=== PATIENT | male | born 1950 | race Caucasian/White ===

== ENCOUNTER → 2016-08-26 | Outpatient (CLI) | payer BC ==
[2016-08-26 07:45] LABS: CH 31.5; CHCM 35.1; HCT 48.3 % (39.0-53.0); HDW 3.03; HGB 16.4 gm/dL (13.0-17.5); MCH 30.7 pg (25.0-35.0); MCV 90.2 fL (80.0-100.0); Mean Platelet Volume 7.6; RBC 5.35 m/uL (4.30-5.90); RDW 13.2 % (11.5-15.5); WBC 5.7 k/uL (3.8-10.6)
[2016-08-26 10:41] LABS: ALT 51 U/L (21-72); AST 27 U/L (17-59); Alkaline Phosphatase 72 U/L (38-126); Anion Gap 10 mmol/L; Blood Urea Nitrogen 14 mg/dL (9-20); Calcium 9.2 mg/dL (8.4-10.2); Carbon Dioxide 28 mmol/L (22-30); Chloride 105 mmol/L (98-107); Cholesterol 239 mg/dL (<200); Creatine Kinase 100 U/L (55-170); Glucose 96 mg/dL (74-99); HDL Cholesterol 31 mg/dL (40-60); Non-African American GFR(MDRD) >60 (>60 ml/min/1.73 sqM); Potassium 4.5 mmol/L (3.5-5.1); Sodium 143 mmol/L (137-145); Total Bilirubin 1.1 mg/dL (0.2-1.3); Total Protein 6.9 g/dL (6.3-8.2); Triglycerides 187 mg/dL (<150)
[2016-08-26 11:14] LABS: Prostate Specific Antigen 3.23 ng/mL (0.00-4.00)
== END | disposition home or self-care (01) ==
LOC: LABWHC1 06:58
PROVIDERS: ATTEND Family Medicine
DX: Z00.00 Encounter for general adult medical examination without abnormal findings (principal); E78.5 Hyperlipidemia, unspecified; R35.0 Frequency of micturition; Z51.81 Encounter for therapeutic drug level monitoring; Z79.899 Other long term (current) drug therapy
CPT/HCPCS: 36415; 80053; 80061; 82550; 84153; 84443; 85027

== ENCOUNTER 2017-11-19 07:56 | Observation (INO) | payer BC, MEDICARE ==
[2017-11-19] MEDS ORDERED: ASPIRIN 81 MG PO STA (08:19)
[2017-11-19] MEDS ORDERED: SODIUM CHLORIDE 0.9% 1,000 ML IV STA (08:19)
[2017-11-19] MEDS ORDERED: MORPHINE SULFATE/PF 10MG/10ML VL IVP STA (08:19)
[2017-11-19] MEDS ORDERED: NITROGLYCERIN OINT 1 INCH/GM PACKET TOPICAL STA (08:19)
[2017-11-19] MEDS ORDERED: ONDANSETRON 4 MG/2 ML VIAL IVP STA (08:19)
--- NOTE | 2017-11-19 08:29 | ED ---
Chest Pain HPI - General Chief Complaint: Chest Pain Stated Complaint: CHEST BURNING, COLD AND CLAMMY Time Seen by Provider: 11/19/17 08:11 Source: patient Mode of arrival: wheelchair Limitations: no limitations - History of Present Illness Initial Comments: 67 years old male had a chest pain since 1:30 morning he does have a history of heartburn he thought was heartburn he took is PPIs and then heartburn continued the now he feels better he said it hurts when he takes a deep breath. No history of heart disease his noticed that me he was quite diaphoretic, no headache no neck stiffness has heartburn and heartburn gets worse with deep breaths no abdominal pain no frequency urgency dysuria no symptoms of TIA or CVA - Related Data Home Medications Medication Instructions Recorded Confirmed Atorvastatin [Lipitor] 20 mg PO DAILY 10/13/15 10/13/15 Ciprofloxacin HCl [Cipro] 500 mg PO Q12HR 10/13/15 10/13/15 Rodney-3 Acid Ethyl Esters [Lovaza] 2 gm PO BID 10/13/15 10/13/15 Previous Rx's Medication Instructions Recorded Famotidine [Pepcid] 20 mg PO BID #20 tablet 10/13/15 Levofloxacin [Levaquin] 750 mg PO DAILY 7 Days tab 10/13/15 diphenhydrAMINE [Benadryl] 1 - 2 tab PO Q6HR PRN #30 capsule 10/13/15 predniSONE 20 mg PO DIRECTED 9 Days tab 10/13/15 Allergies Allergy/AdvReac Type Severity Reaction Status Date / Time ceftriaxone sodium Allergy Unknown Verified 11/19/17 07:57 [From Rocephin] doxycycline Allergy Unknown Verified 11/19/17 07:57 Penicillins Allergy Unknown Verified 11/19/17 07:57 Sulfa (Sulfonamide Allergy Unknown Verified 11/19/17 07:57 Antibiotics) sulfamethoxazole Allergy Unknown Verified 11/19/17 07:57 [From Bactrim] trimethoprim [From Bactrim] Allergy Unknown Verified 11/19/17 07:57 Review of Systems ROS Statement: Those systems with pertinent positive or pertinent negative responses have been documented in the HPI. ROS Other: All systems not noted in ROS Statement are negative. EKG Findings - EKG Comments: EKG Findings:: EKG is normal sinus rhythm ventricular rate is 86 IN interval is 156 QRS duration is 84 QT/QTC 360/4:30 and review of this EKG reveals T-wave inversion in lead 3 noticed [address] slight ST and T-wave flattening in aVF no ST elevation noticed in rest of the leads Past Medical History Past Medical History: Hyperlipidemia History of Any Multi-Drug Resistant Organisms: None Reported Additional Past Surgical History / Comment(s): hemorrhoidectomy Past Psychological History: No Psychological Hx Reported Smoking Status: Never smoker Past Alcohol Use History: None Reported Past Drug Use History: None Reported General Exam - General Exam Comments Initial Comments: General: The patient is awake and alert, in no distress, and does not appear acutely ill. Skin: Skin is warm and dry and no rashes or lesions are noted. Eye: Pupils are equal, round and reactive to light, extra-ocular movements are intact; there is normal conjunctiva bilaterally. Ears, nose, mouth and throat: There are moist mucous membranes and no oral lesions. Neck: The neck is supple, there is no tenderness or JVD. Cardiovascular: There is a regular rate and rhythm. No murmur, rub or gallop is appreciated. Respiratory: To auscultation bilateral, no wheezing no rhonchi no distress respiratory edmond noticed Gastrointestinal: Soft, non-distended, non-tender abdomen without masses or organomegaly noted. There is no rebound or guarding present. Bowel sounds are unremarkable. Back: There is no tenderness to palpation in the midline. There is no obvious deformity. Musculoskeletal: Normal ROM, no tenderness, There is no pedal edema. There is no calf tenderness or swelling. No cords were appreciated. Neurological: CN II-XII intact, Cranial nerves III through XII are intact. There are no obvious motor or sensory deficits. Coordination appears grossly intact. Speech is normal. Psychiatric: Cooperative, appropriate mood & affect, normal judgment. Limitations: no limitations Course Vital Signs 11/19/17 07:57 Temperature 98.1 F Pulse Rate 85 Respiratory 17 Rate Blood Pressure 141/87 O2 Sat by Pulse 96 Oximetry Patient is reassessed at term his troponin is unremarkable white count is 15 he had exposure to secondhand smoke for 25+ years and troponin compressive metabolic panel are unremarkable considering he is about 52 he would need to come in under Dr. Martinez's service admit observation with the cardiology consult for 3 sets of cardiac markers and now he'll go on Levaquin for his bronchitis considering his white count is elevated with a left shift Disposition Clinical Impression: Heart burn, Bronchitis Disposition: ADMITTED IP TO THIS HOSP Condition: Good Referrals: Ellie Aldridge MD [Primary Care Provider] - 1-2 days
[2017-11-19 08:36] LABS: Basophils % (A) 0 %; Eosinophils # (A) 0.3 k/uL (0-0.7); Eosinophils % (A) 2 %; HCT 47.8 % (39.0-53.0); HGB 17.6 gm/dL (13.0-17.5); Lymphocytes # (A) 1.1 k/uL (1.0-4.8); Lymphocytes % (A) 8 %; MCH 31.8 pg (25.0-35.0); MCHC 36.8 g/dL (31.0-37.0); MCV 86.5 fL (80.0-100.0); Mean Platelet Volume 7.1; Monocytes # (A) 0.7 k/uL (0-1.0); Monocytes % (A) 5 %; Neutrophils # (A) 12.4 k/uL (1.3-7.7); Neutrophils % (A) 85 %; Platelet Count 254 k/uL (150-450); RBC 5.53 m/uL (4.30-5.90); RDW 13.4 % (11.5-15.5); WBC 14.6 k/uL (3.8-10.6)
[2017-11-19 08:43] LABS: ALT 36 U/L (21-72); AST 27 U/L (17-59); Albumin 4.4 g/dL (3.5-5.0); Alkaline Phosphatase 88 U/L (38-126); Anion Gap 11 mmol/L; Blood Urea Nitrogen 15 mg/dL (9-20); Calcium 9.6 mg/dL (8.4-10.2); Carbon Dioxide 24 mmol/L (22-30); Chloride 107 mmol/L (98-107); Glucose 132 mg/dL (74-99); Magnesium 2.1 mg/dL (1.6-2.3); Potassium 4.1 mmol/L (3.5-5.1); Sodium 142 mmol/L (137-145); Total Bilirubin 0.9 mg/dL (0.2-1.3); Total Protein 7.2 g/dL (6.3-8.2)
--- NOTE | 2017-11-19 08:50 | XR ---
EXAMINATION TYPE: XR chest 2V DATE OF EXAM: 11/19/2017 HISTORY: Chest Pain. REFERENCE: Previous study dated 10/13/2015. FINDINGS: Heart size upper limits of normal. There is mild ectasia of the ascending thoracic aorta. T here is unfolding of the descending thoracic aorta. There is some scarring in the right upper lobe. T he lungs are otherwise clear. Pleural spaces are clear. IMPRESSION: NO ACUTE INTRATHORACIC ABNORMALITY.
[2017-11-19 08:58] LABS: Creatine Kinase 85 U/L (55-170)
[2017-11-19 09:11] LABS: Creatine Kinase MB 1.4 ng/mL (0.0-2.4); Troponin I <0.012 ng/mL (0.000-0.034)
[2017-11-19] MEDS ORDERED: NITROGLYCERIN SL TABS 0.4 MG TAB SUBLINGUAL PRN (09:42)
[2017-11-19] MEDS ORDERED: MORPHINE SULFATE/PF 10MG/10ML VL IVP PRN (09:42)
[2017-11-19 10:26] LABS: D-Dimer 0.85 mg/L FEU (<0.60); Prothrombin Time 9.7 sec (9.0-12.0)
[2017-11-19 10:27] LABS: Partial Thromboplastin Time 21.3 sec (22.0-30.0)
[2017-11-19] MEDS ORDERED: RX INFO: IV CONTRAST WAS GIVEN 1 EACH MISC MISCELLANE PRN (10:30)
[2017-11-19] MEDS ORDERED: ACETAMINOPHEN TAB 325 MG TAB PO PRN (11:17)
[2017-11-19 11:37] VITALS: RESP 16
--- NOTE | 2017-11-19 11:41 | CT ---
EXAMINATION TYPE: CT angio chest DATE OF EXAM: 11/19/2017 11:16 AM COMPARISON: NONE HISTORY: Patient complains of back pain and chest burning. CT DLP: 358.3 mGycm Automated exposure control for dose reduction was used. CONTRAST: CTA scan of the thorax is performed with IV Contrast, patient injected with 100 mL of Isovue 370, pul monary embolism protocol. . FINDINGS: The lungs are clear. There is no significant axillary, mediastinal or hilar adenopathy. There is no evidence of pulmonary embolus. Aortic root is mildly aneurysmal measuring 3.8 cm. The proximal arch is also mildly aneurysmally dila long measuring 3.9 cm. The remainder the aorta is normal in caliber. There is no pleural or pericardial fluid. The heart is enlarged. Visualized portions of the upper abdomen are unremarkable. There is hypertrophic spondylosis within the spine. IMPRESSION: 1. THIS EXAMINATION IS NEGATIVE FOR PULMONARY EMBOLUS. 2. ASCENDING THORACIC AORTIC ANEURYSM. 3. CARDIOMEGALY. 4. DEGENERATIVE CHANGES WITHIN THE SPINE.
[2017-11-19] MEDS: LEVOFLOXACIN 750 MG TAB PO SCH (12:14)
--- NOTE | 2017-11-19 12:44 | P.CRDCN ---
History of Present Illness Consult date: 11/19/17 Chief complaint: Chest pain History of present illness: This is a pleasant 67-year-old gentleman with a past medical history significant for dyslipidemia presented to the hospital complaining of chest discomfort. He describes chronic and intermittent episodes of chest discomfort as a burning sensation in the middle of the chest without any radiation to the arm or neck or shoulders and without any associated symptoms. What alarmed him this time and brought him to the hospital that he woke up this morning feeling clammy and sweaty. He was experiencing also chest discomfort. No history of coronary artery disease but he does have dyslipidemia as a risk factor for CAD. No history of smoking or alcohol. And no family history of coronary artery disease. The EKG showed sinus rhythm with nonspecific changes. The first set of troponin came in to be unremarkable. The d-dimer came in to be elevated but the computed tomography scan of the chest did not show any evidence of PE. Past Medical History Past Medical History: Hyperlipidemia History of Any Multi-Drug Resistant Organisms: None Reported Additional Past Surgical History / Comment(s): hemorrhoidectomy Past Psychological History: No Psychological Hx Reported Smoking Status: Never smoker Past Alcohol Use History: None Reported Past Drug Use History: None Reported Medications and Allergies Home Medications Medication Instructions Recorded Confirmed Type Atorvastatin [Lipitor] 20 mg PO DAILY 11/19/17 11/19/17 History Garlic 1 tab PO DAILY 11/19/17 11/19/17 History [employer]-3 Fatty Acids/Fish Oil [Fish 1 cap PO BID 11/19/17 11/19/17 History Oil 1,000 mg Softgel] Pantoprazole Sodium [Protonix] 20 mg PO DAILY PRN 11/19/17 11/19/17 History Allergies Allergy/AdvReac Type Severity Reaction Status Date / Time ceftriaxone sodium Allergy Unknown Verified 11/19/17 10:35 [From Rocephin] doxycycline Allergy Unknown Verified 11/19/17 10:35 Penicillins Allergy Unknown Verified 11/19/17 10:35 Sulfa (Sulfonamide Allergy Unknown Verified 11/19/17 10:35 Antibiotics) sulfamethoxazole Allergy Unknown Verified 11/19/17 10:35 [From Bactrim] trimethoprim [From Bactrim] Allergy Unknown Verified 11/19/17 10:35 Physical Exam Vitals: Vital Signs Temp Pulse Pulse Resp BP BP Pulse Ox 11/19/17 11:30 98 F 69 16 132/80 97 11/19/17 11:20 98.1 F 85 18 137/71 95 11/19/17 11:18 85 18 137/71 95 11/19/17 09:46 77 18 145/78 97 11/19/17 07:57 98.1 F 85 17 141/87 96 Intake and Output 11/18/17 11/19/17 11/19/17 22:59 06:59 14:59 Intake Total 300 Balance 300 Intake: Amount of Fluid Infused ( 300 ml) Other: Weight 84.822 kg - Constitutional General appearance: no acute distress - Respiratory Respiratory: bilateral: CTA - Cardiovascular Rhythm: regular Heart sounds: normal: S1, S2 Results 11/19/17 08:20 11/19/17 08:20 Cardiac Enzymes 11/19/17 11/19/17 Range/Units 08:20 08:20 AST 27 (17-59) U/L CK-MB (CK-2) 1.4 (0.0-2.4) ng/mL Troponin I <0.012 (0.000-0.034) ng/mL Coagulation 11/19/17 Range/Units 09:49 PT 9.7 (9.0-12.0) sec APTT 21.3 L (22.0-30.0) sec CBC 11/19/17 Range/Units 08:20 WBC 14.6 H (3.8-10.6) k/uL RBC 5.53 (4.30-5.90) m/uL Hgb 17.6 H (13.0-17.5) gm/dL Hct 47.8 (39.0-53.0) % Plt Count 254 (150-450) k/uL Comprehensive Metabolic Panel 11/19/17 Range/Units 08:20 Sodium 142 (137-145) mmol/L Potassium 4.1 (3.5-5.1) mmol/L Chloride 107 (98-107) mmol/L Carbon Dioxide 24 (22-30) mmol/L BUN 15 (9-20) mg/dL Creatinine 0.69 (0.66-1.25) mg/dL Glucose 132 H (74-99) mg/dL Calcium 9.6 (8.4-10.2) mg/dL AST 27 (17-59) U/L ALT 36 (21-72) U/L Alkaline Phosphatase 88 (38-126) U/L Total Protein 7.2 (6.3-8.2) g/dL Albumin 4.4 (3.5-5.0) g/dL Current Medications Generic Name Dose Route Start Last Admin Trade Name Freq PRN Reason Stop Dose Admin Acetaminophen 650 mg 11/19/17 11:17 11/19/17 12:13 Tylenol Tab PO 650 mg Q4HR PRN Administration Fever and/ or Mild Pain Aspirin 325 mg 11/20/17 09:00 Aspirin PO DAILY CAMELIA Atorvastatin Calcium 40 mg 11/19/17 21:00 Lipitor PO HS CAMELIA Sodium Chloride 1,000 mls @ 100 mls/hr 11/19/17 08:19 11/19/17 09:44 Saline 0.9% IV 11/19/17 18:18 100 mls/hr .Q10H STA Administration Levofloxacin 750 mg 11/19/17 10:30 11/19/17 12:14 Levaquin PO 750 mg DAILY CAMELIA Administration Miscellaneous Information 1 each 11/19/17 10:30 Rx Info: Iv Contrast Was Given MISCELLANE 11/21/17 10:30 DAILY PRN Per Protocol Morphine Sulfate 2 mg 11/19/17 09:42 Morphine Sulfate IVP Q5M PRN Chest Pain Nitroglycerin 0.4 mg 11/19/17 09:42 Nitrostat SUBLINGUAL Q5M PRN Chest Pain Intake and Output 11/18/17 11/19/17 11/19/17 22:59 06:59 14:59 Intake Total 300 Balance 300 Intake: Amount of Fluid Infused ( 300 ml) Other: Weight 84.822 kg Patient Weight 11/20/17 06:59 Weight 84.822 kg 11/19/17 08:20 11/19/17 08:20 Assessment and Plan Assessment: Assessment #1 intermittent episodes of chest discomfort #2 abnormal EKG was nonspecific changes #3 dyslipidemia Plan #1 acute coronary event to be ruled out #2 we'll follow-up with the serial cardiac enzymes #3 monitor the patient for any more episodes of chest discomfort #4 obtain an echocardiogram was Doppler #5 follow-up with the patient. Thank you for allowing us participate in his care and we'll continue following up with him
--- NOTE | 2017-11-19 14:58 | ECHOF ---
Referral Reason:chest pain MEASUREMENTS -------- HEIGHT: 170.2 cm WEIGHT: 84.8 kg BP: 132/80 RVIDd: 3.0 cm (< 3.3) IVSd: 1.1 cm (0.6 - 1.1) LVIDd: 4.0 cm (3.9 - 5.3) LVPWd: 1.2 cm (0.6 - 1.1) IVSs: 1.4 cm LVIDs: 3.4 cm LVPWs: 1.5 cm LAESV Index (A-L): 31.97 ml/m Ao Diam: 3.8 cm (2.0 - 3.7) AV Cusp: 1.8 cm (1.5 - 2.6) LA Diam: 3.1 cm (2.7 - 3.8) EPSS: 0.9 cm MV E Will: 0.50 m/s MV DecT: 389 ms MV A Will: 0.80 m/s MV E/A Ratio: 0.63 RAP: 5.00 mmHg RVSP: 22.44 mmHg MV EF SLOPE: 56.51 mm/s (70 - 150) MV EXCURSION: 1.47 cm (> 18.000) FINDINGS -------- Sinus rhythm. This was a technically adequate study. The left ventricular size is normal. There is mild concentric left ventricular hypertrophy. Overa ll left ventricular systolic function is normal with, an EF between 55 - 60 %. The right ventricle is mildly enlarged. LA is midly dilated 29-33ml/m2. The right atrium is normal in size. The aortic valve is trileaflet, and appears structurally normal. No aortic stenosis or regurgitation. The mitral valve leaflets are mildly thickened. There is trace to mild mitral regurgitation. Trace tricuspid regurgitation present. Right ventricular systolic pressure is normal at < 35 mmHg. There is no evidence of pulmonary hypertension. The pulmonic valve is normal. The aortic root size is normal. IVC Not well visulized. There is no pericardial effusion. CONCLUSIONS -------- 1. Sinus rhythm. 2. This was a technically adequate study. 3. The left ventricular size is normal. 4. There is mild concentric left ventricular hypertrophy. 5. Overall left ventricular systolic function is normal with, an EF between 55 - 60 %. 6. The right ventricle is mildly enlarged. 7. LA is midly dilated 29-33ml/m2. 8. The aortic valve is trileaflet, and appears structurally normal. No aortic stenosis or regurgitati on. 9. The mitral valve leaflets are mildly thickened. 10. There is trace to mild mitral regurgitation. 11. Trace tricuspid regurgitation present. 12. Right ventricular systolic pressure is normal at < 35 mmHg. 13. There is no evidence of pulmonary hypertension. 14. The aortic root size is normal. 15. IVC Not well visulized. 16. There is no pericardial effusion. PARTS PERSON: Glenroy Campbell RDCS
--- NOTE | 2017-11-19 15:12 | P.HPIM ---
History of Present Illness H&P Date: 11/19/17 Chief Complaint: Chest pain This is a 67-year-old gentleman who presented to the hospital with chest discomfort. Patient said that this has been going on on and off for several weeks. He described episode of chest discomfort and burning in the middle of his chest. There is no radiation. His pain is not exertional. He woke up this morning with significant diaphoresis and felt clammy so he was concerned and came into the emergency room. In the emergency room twelve-lead EKG showed no acute ischemic changes. Initial troponin was unremarkable. D-dimer was elevated but computed tomography scan of the chest showed no evidence of PE. Review of Systems Review of system: 14 points review of systems were obtained and were negative except to what were mentioned in the HPI. Past Medical History Past Medical History: GERD/Reflux, Hyperlipidemia, Osteoarthritis (OA) Additional Past Medical History / Comment(s): BRONCHITAS, ARTHRITIS LEFT HIP History of Any Multi-Drug Resistant Organisms: None Reported Additional Past Surgical History / Comment(s): hemorrhoidectomy, EYE SURGERY, EGD - STOMACH ULCER,GERD. COLONOSCOPY Past Anesthesia/Blood Transfusion Reactions: No Reported Reaction Past Psychological History: No Psychological Hx Reported Smoking Status: Never smoker Past Alcohol Use History: None Reported Additional Past Alcohol Use History / Comment(s): SECOND HAND SMOKE- SMOKED HEAVILY Past Drug Use History: None Reported - Past Family History Father Family Medical History: Myocardial Infarction (ME) Mother Additional Family Medical History / Comment(s): HISTORY OF TB, COMPLICATION OF BRONCHOSCOPY Medications and Allergies Home Medications Medication Instructions Recorded Confirmed Type Atorvastatin [Lipitor] 20 mg PO DAILY 11/19/17 11/19/17 History Garlic 1 tab PO DAILY 11/19/17 11/19/17 History [place]-3 Fatty Acids/Fish Oil [Fish 1 cap PO BID 11/19/17 11/19/17 History Oil 1,000 mg Softgel] Pantoprazole Sodium [Protonix] 20 mg PO DAILY PRN 11/19/17 11/19/17 History Allergies Allergy/AdvReac Type Severity Reaction Status Date / Time ceftriaxone sodium Allergy Unknown Verified 11/19/17 10:35 [From Rocephin] doxycycline Allergy Unknown Verified 11/19/17 10:35 Penicillins Allergy Unknown Verified 11/19/17 10:35 Sulfa (Sulfonamide Allergy Unknown Verified 11/19/17 10:35 Antibiotics) sulfamethoxazole Allergy Unknown Verified 11/19/17 10:35 [From Bactrim] trimethoprim [From Bactrim] Allergy Unknown Verified 11/19/17 10:35 Physical Exam Vitals: Vital Signs Temp Pulse Pulse Resp BP BP Pulse Ox 11/19/17 11:30 98 F 69 16 132/80 97 11/19/17 11:20 98.1 F 85 18 137/71 95 11/19/17 11:18 85 18 137/71 95 11/19/17 09:46 77 18 145/78 97 11/19/17 07:57 98.1 F 85 17 141/87 96 Intake and Output 11/19/17 11/19/17 11/19/17 06:59 14:59 22:59 Intake Total 300 Balance 300 Intake: Amount of Fluid Infused ( 300 ml) Other: Voiding Method Toilet Weight 84.822 kg General: The patient is awake and alert, in no distress Eye: there is normal conjunctiva bilaterally. Neck: The neck is supple, there is no JVD. Cardiovascular: Normal S1-S2, no S3-S4, no murmurs. Respiratory: Lungs clear to auscultation bilaterally Gastrointestinal: Abdomen is soft, nontender Musculoskeletal: There is no pedal edema. Neurological:. Speech is normal. Skin: Skin is warm and dry Results CBC & Chem 7: 11/19/17 08:20 11/19/17 08:20 Labs: Abnormal Lab Results - Last 24 Hours (Table) 11/19/17 11/19/17 11/19/17 Range/Units 08:20 08:20 09:49 WBC 14.6 H (3.8-10.6) k/uL Hgb 17.6 H (13.0-17.5) gm/dL Neutrophils # 12.4 H (1.3-7.7) k/uL APTT 21.3 L (22.0-30.0) sec D-Dimer 0.85 H (<0.60) mg/L FEU Glucose 132 H (74-99) mg/dL Thrombosis Risk Factor Assmnt - Choose All That Apply Each Factor Represents 1 point: Obesity (BMI >25) Each Risk Factor Represents 2 Points: Age 61-74 years Thrombosis Risk Factor Assessment Total Risk Factor Score: 3 Thrombosis Risk Factor Assessment Level: Moderate Risk Assessment and Plan Assessment: 1. Chest pain, mostly atypical in nature. 12 leads EKG showed no acute ischemic changes. Troponin was negative. Echocardiogram showed preserved ejection fraction with no significant valvular abnormalities or wall motion abnormalities. D-dimer was elevated the CT angiogram negative for PE. We will continue telemetry monitoring. Patient was seen by cardiology. Awaiting clearance for discharge. 2. Next hyperlipidemia: On Lipitor at home. Fasting lipid profile ordered. 3. Leukocytosis, unclear significance. I will repeat CBC tomorrow.
[2017-11-19 15:44] LABS: Creatine Kinase 92 U/L (55-170)
[2017-11-19 15:58] LABS: Creatine Kinase MB 1.5 ng/mL (0.0-2.4); Troponin I <0.012 ng/mL (0.000-0.034)
[2017-11-19] MEDS ORDERED: NON-FORMULARY DRUG (Omega-3 Acid Ethyl Esters [Lovaza] 2 GM) PO SCH (21:00)
[2017-11-19] MEDS ORDERED: ATORVASTATIN 40 MG TAB PO SCH (21:00)
[2017-11-19 21:32] LABS: Creatine Kinase 68 U/L (55-170)
[2017-11-19 21:45] LABS: Creatine Kinase MB 1.2 ng/mL (0.0-2.4); Troponin I <0.012 ng/mL (0.000-0.034)
[2017-11-20 04:17] VITALS: PULSE 56
[2017-11-20 07:07] LABS: Basophils % (A) 0 %; Eosinophils # (A) 0.3 k/uL (0-0.7); Eosinophils % (A) 3 %; Lymphocytes % (A) 20 %; MCH 30.7 pg (25.0-35.0); MCHC 34.8 g/dL (31.0-37.0); MCV 88.3 fL (80.0-100.0); Mean Platelet Volume 7.4; Monocytes # (A) 0.7 k/uL (0-1.0); Monocytes % (A) 7 %; Neutrophils # (A) 6.8 k/uL (1.3-7.7); Neutrophils % (A) 68 %; Platelet Count 221 k/uL (150-450); RBC 4.65 m/uL (4.30-5.90); RDW 13.3 % (11.5-15.5); WBC 9.9 k/uL (3.8-10.6)
[2017-11-20 07:13] LABS: Anion Gap 7 mmol/L; Blood Urea Nitrogen 18 mg/dL (9-20); Calcium 8.5 mg/dL (8.4-10.2); Carbon Dioxide 24 mmol/L (22-30); Chloride 109 mmol/L (98-107); Cholesterol 186 mg/dL (<200); Glucose 85 mg/dL (74-99); HDL Cholesterol 27 mg/dL (40-60); LDL Cholesterol,Calculated 107 mg/dL (0-99); Potassium 4.6 mmol/L (3.5-5.1); Sodium 140 mmol/L (137-145); Triglycerides 259 mg/dL (<150)
[2017-11-20 07:14] LABS: HGB 14.3 gm/dL (13.0-17.5)
[2017-11-20] MEDS ORDERED: MORPHINE SULF 5MG/10ML VL IVP PRN (07:49)
[2017-11-20] MEDS: LEVOFLOXACIN 750 MG TAB PO SCH (08:45)
[2017-11-20] MEDS ORDERED: ASPIRIN 325 MG TAB PO SCH (09:00)
--- NOTE | 2017-11-20 09:12 | P.PN ---
Subjective Progress Note Date: 11/20/17 Principal diagnosis: chest discomfort This is a pleasant 67-year-old gentleman with a past medical history significant for dyslipidemia presented to the hospital complaining of chest discomfort. He describes chronic and intermittent episodes of chest discomfort as a burning sensation in the middle of the chest without any radiation to the arm or neck or shoulders and without any associated symptoms. What alarmed him this time and brought him to the hospital that he woke up this morning feeling clammy and sweaty. He was experiencing also chest discomfort. The EKG showed sinus rhythm with nonspecific changes. The d-dimer came in to be elevated but the computed tomography scan of the chest did not show any evidence of PE.the cardiac enzymes were performed and showed no evidence of acute coronary event. On follow-up with the patient today, he denies having any chest pain or chest discomfort. He stated that he was up and around and he was asymptomatic. He continues to be on antibiotic for what it seems to be possible pneumonia. The echocardiogram showed normal LV function without any significant valvular abnormalities. Objective - Vital Signs Vital signs: Vital Signs Temp 97.8 F 11/20/17 08:46 Pulse 56 L 11/20/17 08:46 Resp 16 11/20/17 08:46 BP 117/66 11/20/17 08:46 Pulse Ox 96 11/20/17 08:46 Intake & Output 11/19/17 11/20/17 11/20/17 18:59 06:59 18:59 Intake Total 660 1960 Balance 660 1960 Weight 84.822 kg 88.8 kg Intake: Amount of Fluid Infused ( 300 ml) Intake, IV Titration 1000 Amount Sodium Chloride 0.9% 1, 1000 000 ml @ 100 mls/hr IV . Q10H STA Rx#:[id number] Oral 360 960 Other: Voiding Method Toilet Toilet Toilet # Voids 2 - Constitutional General appearance: Present: no acute distress - Respiratory Respiratory: bilateral: CTA - Cardiovascular Rhythm: regular Heart sounds: normal: S1, S2 - Labs CBC & Chem 7: 11/20/17 05:53 11/20/17 05:53 Labs: Abnormal Lab Results - Last 24 Hours (Table) 11/19/17 11/20/17 Range/Units 09:49 05:53 APTT 21.3 L (22.0-30.0) sec D-Dimer 0.85 H (<0.60) mg/L FEU Chloride 109 H (98-107) mmol/L Triglycerides 259 H (<150) mg/dL LDL Cholesterol, Calc 107 H (0-99) mg/dL HDL Cholesterol 27 L (40-60) mg/dL Assessment and Plan Assessment: Assessment #1 intermittent episodes of chest discomfort #2 abnormal EKG was nonspecific changes #3 dyslipidemia Plan #1 the patient was ruled out for acute coronary event #2 the echocardiogram revealed normal LV function #3 he will benefit from a stress test as an outpatient. Thank you for allowing us participate in his care
[2017-11-20 11:49] VITALS: BP 117/65; TEMP 97.6
--- NOTE | 2017-11-20 14:03 | P.DS ---
Providers Date of admission: 11/19/17 09:42 Expected date of discharge: 11/20/17 Attending physician: Maru Martin Consults: 11/19/17 09:42 Consult Physician Urgent Consulting Provider: Jamshid Reddy Consult Reason/Comments: Chest pain Do you want consulting provider notified?: Yes Primary care physician: Ellie Aldridge [facility] Course: 1. Chest pain, mostly atypical in nature. 12 leads EKG showed no acute ischemic changes. Troponin was negative. Echocardiogram showed preserved ejection fraction with no significant valvular abnormalities or wall motion abnormalities. D-dimer was elevated the CT angiogram negative for PE. Patient was seen by cardiology and cleared for discharge with no further testing. 2. Next hyperlipidemia: On Lipitor at home. Patient Condition at Discharge: Good Plan - Discharge Summary New Discharge Prescriptions: New Atorvastatin [Lipitor] 40 mg PO HS #30 tab Levofloxacin [Levaquin] 750 mg PO DAILY #3 tab Continue [place]-3 Fatty Acids/Fish Oil [Fish Oil 1,000 mg Softgel] 1 cap PO BID Garlic 1 tab PO DAILY Pantoprazole Sodium [Protonix] 20 mg PO DAILY PRN PRN Reason: Heartburn Discontinued Atorvastatin [Lipitor] 20 mg PO DAILY Discharge Medication List Garlic 1 tab PO DAILY 11/19/17 [History] [employer]-3 Fatty Acids/Fish Oil [Fish Oil 1,000 mg Softgel] 1 cap PO BID 11/19/17 [ History] Pantoprazole Sodium [Protonix] 20 mg PO DAILY PRN 11/19/17 [History] Atorvastatin [Lipitor] 40 mg PO HS #30 tab 11/20/17 [Rx] Levofloxacin [Levaquin] 750 mg PO DAILY #3 tab 11/20/17 [Rx] Follow up Appointment(s)/Referral(s): Ellie Aldridge MD [Primary Care Provider] - 1-2 days Discharge Disposition: HOME SELF-CARE
== END 2017-11-20 14:48 | disposition home or self-care (01) ==
LOC: EC 07:56 → 6SEL 09:42
PROVIDERS: ADMIT Internal Medicine; ATTEND Internal Medicine
DX: R07.89 Other chest pain (principal); E78.5 Hyperlipidemia, unspecified; D72.829 Elevated white blood cell count, unspecified; R94.31 Abnormal electrocardiogram [ECG] [EKG]; J40 Bronchitis, not specified as acute or chronic; R79.89 Other specified abnormal findings of blood chemistry; R61 Generalized hyperhidrosis; K21.9 Gastro-esophageal reflux disease without esophagitis; M19.90 Unspecified osteoarthritis, unspecified site; M16.12 Unilateral primary osteoarthritis, left hip; Z82.49 Family history of ischemic heart disease and other diseases of the circulatory system; Z79.899 Other long term (current) drug therapy; Z88.1 Allergy status to other antibiotic agents; Z88.0 Allergy status to penicillin; Z88.2 Allergy status to sulfonamides; E66.9 Obesity, unspecified; Z68.30 Body mass index [BMI] 30.0-30.9, adult; Z77.22 Contact with and (suspected) exposure to environmental tobacco smoke (acute) (chronic); R12 Heartburn
CPT/HCPCS: 99285 ×2; 96360 ×2; 96361 ×3; 36415; 93005; 93306; 85379; 80061; 80053; 80048; 82550; 82553; 83735; 84484; 85025 ×2; 85610; 85730; 71046; 71275; G0378 ×2; Q9967

== ENCOUNTER 2024-10-16 08:32 | Day surgery (SDC) | payer MEDICARE ==
[2024-10-16 09:26] VITALS: RESP 16; TEMP 97.6
[2024-10-16] MEDS: LACTATED RINGERS 1,000 ML IV SCH (09:26)
[2024-10-16] MEDS: IV FLUID CONTINUATION 1,000 ML IV ONE (09:26)
[2024-10-16] MEDS: LIDOCAINE 1% (10MG/ML) FOR IV START INTRADERMA STA (09:27)
[2024-10-16] MEDS ORDERED: LIDOCAINE 1% INJ 10MG/ML (20 ML MDV) ONE (09:55)
[2024-10-16] MEDS ORDERED: PROPOFOL 10 MG/ML 20 ML VIAL IV ONE (09:55)
--- NOTE | 2024-10-16 10:18 | P.PCN ---
Date of Procedure: 10/16/24 Procedure(s) Performed: BRIEF HISTORY: Patient is a 73-year-old pleasant white male scheduled for an elective colonoscopy as a part of evaluation of lower abdominal pain and change in bowel habits for the last several months duration. PROCEDURE PERFORMED: Colonoscopy. PREOPERATIVE DIAGNOSIS: Lower abdominal pain and change in bowel habits. IV sedation per Anesthesia. PROCEDURE: After informed consent was obtained, the patient, was brought into the endoscopy unit. IV sedation was administered by Anesthesia under continuous monitoring. Digital rectal examination was normal. Initially the Olympus CF-160 flexible video colonoscope was then inserted in the rectum, gradually advanced into the cecum without any difficulty. Careful examination was performed as the scope was gradually being withdrawn. Ileocecal valve and the appendiceal orifice were visualized and appeared normal. Prep was excellent. Mucosa of the cecum, ascending colon, transverse colon, descending colon, sigmoid colon, and rectum appeared normal. Diffuse diverticulosis seen. Retroflexion was performed in the rectum and no lesions were seen. The patient tolerated the procedure well. IMPRESSION: Normal-appearing colon from rectum to cecum with no evidence of colorectal neoplasia Diffuse scattered diverticulosis. RECOMMENDATIONS: Findings of this examination were discussed with the patient as well as his family. He was advised to be on high-fiber diet and take fiber supplements on a regular basis. Recommended repeat screening colonoscopy in 10 years..
[2024-10-16 10:41] VITALS: BP 140/73; PULSE 51
== END 2024-10-16 10:58 | disposition home or self-care (01) ==
LOC: ORWHC2ENDO 08:32
PROVIDERS: ATTEND Internal Medicine Gastroenterology
DX: K57.30 Diverticulosis of large intestine without perforation or abscess without bleeding (principal); K21.9 Gastro-esophageal reflux disease without esophagitis; E78.5 Hyperlipidemia, unspecified; Z88.1 Allergy status to other antibiotic agents; Z88.2 Allergy status to sulfonamides
CPT/HCPCS: 45378; J2003; J2704

== ENCOUNTER → 2024-11-12 | Outpatient (CLI) | payer MEDICARE ==
--- NOTE | 2024-11-12 08:56 | MR ---
EXAMINATION TYPE: MR Prostate wo/w con DATE OF EXAM: 11/12/2024 COMPARISON: None. INDICATION: Elevated PSA. PSA: 5.2 ng/ml on September 14, 2024 Recent Biopsy and Date: none Pathology Report (If Applicable): TECHNIQUE: Examination was performed using a 3T MRI without an endorectal coil. Multiparametric imaging was perf ormed with T2 mutliplanar sequences, axial diffusion weighted imaging and dynamic contrast enhanced i maging, utilizing 7 mL intravenous Gadobutrol gadolinium contrast. FINDINGS: PROSTATE VOLUME: 3.8 cm SI x 4.3 cm AP x 5.5 cm LR Vol= 47.1 cc PSA DENSITY: 0.11 ng/ml/cc Slightly enlarged prostate consistent with BPH is present. There are some linear areas of slightly di minished signal on ADC mapping in the peripheral zone bilaterally. No areas of marked diminished sign al on ADC mapping. Transitional zone shows bilateral nodules without suspicious T2 hypointense area. No areas of significant increased signal on diffusion-weighted imaging identified. Highest PI-RADS eq uals 2. Sigmoid colonic diverticulosis is present. No destructive osseous lesions are seen. IMPRESSION: Slightly enlarged prostate consistent with BPH. A focus of clinically significant cancer is not identified. Highest Assessment Category: 2 MRI Stage: T0 N0 M0 based on review of pelvic images. False negative rates for MRI range from 5-20% depending on risk profile. Assessment Categories: 1 ? Very low (clinically significant cancer is highly unlikely to be present) 2 ? Low (clinically significant cancer is unlikely to be present) 3 ? Intermediate (the presence of clinically significant cancer is equivocal) 4 ? High (clinically significant cancer is likely to be present) 5 ? Very high (clinically significant cancer is highly likely to be present) [facility], , 11/12/2024 8:53 AM
== END | disposition home or self-care (01) ==
LOC: RADMRIMAIN 06:10
PROVIDERS: ATTEND Urology
DX: N40.0 Benign prostatic hyperplasia without lower urinary tract symptoms (principal); E78.5 Hyperlipidemia, unspecified; R97.20 Elevated prostate specific antigen [PSA]; K25.9 Gastric ulcer, unspecified as acute or chronic, without hemorrhage or perforation
CPT/HCPCS: 72197; A9585